=== PATIENT | female | born 1985 | race Caucasian/White ===

== ENCOUNTER 2017-04-02 07:20 | Inpatient (IN) | payer BC ==
[2017-04-02] VITALS (8 sets, daily range): BP systolic 107–122; BP diastolic 55–78
[~2017-04-02] VITALS: Ht 172.7 cm; Wt 89.1 kg
[~2017-04-02 07:20] MED LIST: MOTRIN800 MG PO; PERCOCET 5/31 TABLET PO; PRENATAL TABLE1 EAC3 PO
[2017-04-02] MEDS ORDERED: PERCOCET 5/31 TABLET PO (12:09)
[2017-04-02] MEDS ORDERED: MOTRIN800 MG PO (12:09)
[2017-04-03 03:01] VITALS: BP 125/56
[2017-04-03 07:04] LABS: EOSINOPHIL (%) 0.5 % (0-5); EOSINOPHIL COUNT 0.1 K/uL (0-0.3); HEMATOCRIT 32.1 % (36.0-46.0); IMMATURE GRANULOCYTE (%) 0.5 % (0.0-0.7); IMMATURE GRANULOCYTE COUNT 0.1 K/uL; INSTRUMENT ABS NEUTROPHIL CT 7.2 K/uL; LYMPHOCYTE COUNT 1.8 K/uL (1.0-2.8); MCH 32.7 PG (29.0-34.0); MCV 96.4 FL (83-99); MEAN PLAT.VOLUME 10.5 uM^3 (9.5-12.4); MONOCYTE (%) 9.8 % (3-12); NEUTROPHIL (%) 70.8 % (45-76); NEUTROPHIL COUNT 7.2 K/uL (1.8-6.4); PLATELET COUNT 165 K/uL (156-360); RBC DIS.WIDTH-CV 12.8 % (11.8-14.6); RBC DIS.WIDTH-SD 44.5 % (39-53); RED BLOOD COUNT 3.33 M/uL (3.80-5.20); WHITE BLOOD COUNT 10.1 K/uL (4.1-10.2)
[2017-04-03 07:40] VITALS: BP 110/55
[2017-04-03 10:57] VITALS: BP 117/59
[2017-04-03 15:55] VITALS: BP 112/69
[2017-04-03 19:46] VITALS: BP 120/64
[2017-04-03 22:31] VITALS: BP 104/61
[2017-04-04 03:16] VITALS: BP 121/62
[2017-04-04 07:24] VITALS: BP 110/72
== END 2017-04-04 11:40 | disposition home or self-care (01) | DRG 766 ==
LOC: 2WEST 07:20 → 2SOUTH 08:30 → 2WEST 04-04 11:40
PROVIDERS: Obstetrics & Gynecology
PROC: 10D00Z1 Extraction of Products of Conception, Low, Open Approach (ICD-10-PCS; principal; 2017-04-02)
DX: O32.1XX0 Maternal care for breech presentation, not applicable or unspecified (principal); O99.824 Streptococcus B carrier state complicating childbirth; Z37.0 Single live birth; Z3A.39 39 weeks gestation of pregnancy; Z88.0 Allergy status to penicillin
CPT/HCPCS: 36415; 85025; 86900; 86901; J0131; J0690; J1885; J2274; J2300; J2405; J2590; J3010; J7120